=== PATIENT | male | born 1965 | race Caucasian/White ===

== ENCOUNTER 2022-08-22 08:02 | Inpatient (IN) | payer BC, MEDICAID, OTHER, SELFPAY ==
[~2022-08-22] VITALS: Ht 172.7 cm; Wt 134.0 kg
[~2022-08-22 08:02] MED LIST: CELE20TA PO; CELE40TA PO; SERO1TAB PO
[2022-08-22] MEDS: propofoL 200 MG/20 ML VIAL IV.PROC PRN ×2 (10:05→10:07)
[2022-08-22 10:07] LABS: BASO # 0.1 10^3/uL (0.0-0.2); BASO % 0.8 % (0.0-1.0); EOS # 0.2 10^3/uL (0.0-0.5); EOS % 1.7 % (0.0-3.0); HEMATOCRIT 53.5 % (42.0-52.0); HEMOGLOBIN 17.1 g/dl (13.5-17.5); LYMPH # 2.3 10^3/uL (1.5-5.0); LYMPH % 18.4 % (24.0-44.0); MEAN CORPUSCULAR HEMOGLOBIN 30.9 pg (27.0-33.0); MEAN CORPUSCULAR VOLUME 96.6 fl (80.0-96.0); MONO # 0.7 10^3/uL (0.0-0.8); MONO % 6.1 % (2.0-8.0); NEUTROPHILS # 8.8 10^3/uL (1.5-8.5); NEUTROPHILS % 72.5 % (36.0-66.0); PLATELET COUNT, AUTOMATED 304 10^3/uL (150-450); RED BLOOD COUNT 5.54 10^6/uL (4.30-6.10); WHITE BLOOD COUNT 12.2 10^3/uL (4.0-10.0)
[2022-08-22 10:39] LABS: BLOOD UREA NITROGEN 12 MG/DL (9-23); CALCIUM LEVEL 9.5 MG/DL (8.5-10.1); CARBON DIOXIDE LEVEL 28 MMOL/L (20-31); CHLORIDE LEVEL 101 MMOL/L (98-107); CK-MB VALUE MASS < 1.0 NG/ML (<3.6); CPK CREATINE PHOSPHOKINASE 74 U/L (46-171); CREATININE FOR GFR 0.76 MG/DL (0.70-1.30); GLOMERULAR FILTRATION RATE > 60.0 (>56); GLUCOSE, FASTING 244 MG/DL (60-100); MB/CK RELATIVE INDEX 1.35 (< OR =4); POTASSIUM SERUM 4.5 MMOL/L (3.5-5.1); SODIUM LEVEL 137 MMOL/L (136-145)
[2022-08-22 10:52] LABS: RSV AMPLIFICATION NEGATIVE (NEGATIVE)
[2022-08-22] MEDS: NS 1,000 ML IV SCH ×2 (11:45→21:15)
[2022-08-22] MEDS ORDERED: ACETAMINOPHEN TAB 650MG DOSE (2X325MG) PO PRN (14:45)
[2022-08-22] MEDS ORDERED: **hydrALAZINE** 10 MG TAB PO PRN (14:45)
[2022-08-22] MEDS ORDERED: MORPHINE 2 MG/ML 1ML VIAL IV PRN (14:50)
[2022-08-22] MEDS: NICOTINE 21MG/24HR 1 EA TRANSDERMAL TD SCH (15:46)
[2022-08-22] MEDS ORDERED: ACET-683 PO (16:29)
[2022-08-22] MEDS ORDERED: HOME MED LIST COMPLETE! XX SCH (16:30)
[2022-08-22] MEDS ORDERED: BUPIVACAINE/EPIN 0.5% 30 ML VIAL As Ordered ONE (17:22)
[2022-08-22] MEDS ORDERED: ROCURONIUM BROMIDE 50 MG/5 ML VIAL As Ordered ONE ×2 (17:37→18:24)
[2022-08-22] MEDS ORDERED: ceFAZolin 2 GM/D5W 50 ML IV BAG (J0690 PER 500MG) As Ordered ONE (17:51)
[2022-08-22] MEDS ORDERED: dexameTHASONE 4 MG/ML 1ML VIAL (J1100 PER 1MG) As Ordered ONE ×2 (17:58→18:48)
[2022-08-22] MEDS ORDERED: ACETAMINOPHEN 1000MG 100ML IV BAG As Ordered ONE (18:02)
[2022-08-22] MEDS ORDERED: fentaNYL 100 MCG/2 ML INJECTION As Ordered ONE (18:20)
[2022-08-22] MEDS ORDERED: MIDAZOLAM INJ 2MG/2ML VIAL (J2250 PER 1MG) As Ordered ONE (18:42)
[2022-08-22] MEDS ORDERED: propofoL 200 MG/20 ML VIAL As Ordered ONE (18:42)
[2022-08-22] MEDS ORDERED: fentaNYL 250 MCG/5 ML INJECTION As Ordered ONE (18:42)
[2022-08-22] MEDS ORDERED: LIDOCAINE 2% INJ 100 MG/5 ML SYRINGE As Ordered ONE (18:42)
[2022-08-22] MEDS ORDERED: SUGAMMADEX SODIUM 500 MG/5 ML VIAL (BRIDION) As Ordered ONE (18:48)
[2022-08-22] MEDS ORDERED: HYDROmorphone HCL 2MG/ML 1ML VIAL As Ordered ONE (18:49)
[2022-08-22] MEDS ORDERED: LABETALOL 100MG/20ML VIAL As Ordered ONE (19:32)
[2022-08-22] MEDS ORDERED: ONDANSETRON 4MG 2ML VIAL IV PRN ×2 (20:15→20:20)
[2022-08-22] MEDS ORDERED: LR 1,000 ML IV SCH (20:15)
[2022-08-22] MEDS ORDERED: oxyCODONE 5MG TAB PO PRN ×2 (20:15→20:20)
[2022-08-22] MEDS ORDERED: fentaNYL 100 MCG/2 ML INJECTION IV PRN (20:15)
[2022-08-22] MEDS ORDERED: SENNA 8.6 MG TAB (SENOKOT) PO PRN (20:20)
[2022-08-22] MEDS ORDERED: KETOROLAC 30 MG/ML 1ML VIAL IV SCH (20:20)
[2022-08-22] MEDS ORDERED: diphenhydrAMINE 50MG/ML VIAL IV PRN (20:20)
[2022-08-22 21:00] VITALS: BP 112/80
[2022-08-22] MEDS: DOCUSATE SODIUM 100MG CAPSULE PO SCH (21:00)
[2022-08-22] MEDS: KETOROLAC 30 MG/ML 1ML VIAL IV SCH (21:19)
[2022-08-22 21:30] VITALS: BP 113/77
[2022-08-22 22:00] VITALS: BP 116/74
[2022-08-22 23:00] VITALS: BP 109/71
[2022-08-23] VITALS (8 sets, daily range): BP systolic 99–141; BP diastolic 60–84
[2022-08-23] MEDS: ceFAZolin SOD 2 GM in IV 1 EA IV SCH ×2 (00:57→10:00)
[2022-08-23] MEDS: KETOROLAC 30 MG/ML 1ML VIAL IV SCH ×3 (02:48→15:46)
[2022-08-23 06:09] LABS: MEAN CORPUSCULAR HGB CONC 33.1 g/dl (32.0-36.5); MEAN CORPUSCULAR VOLUME 96.6 fl (80.0-96.0); PLATELET COUNT, AUTOMATED 273 10^3/uL (150-450); RED BLOOD COUNT 4.66 10^6/uL (4.30-6.10); WHITE BLOOD COUNT 14.8 10^3/uL (4.0-10.0)
[2022-08-23] MEDS: ASPIRIN 81MG ENTERIC TABLET PO SCH ×2 (06:18→18:02)
[2022-08-23 06:30] LABS: HEMOGLOBIN 14.9 g/dl (13.5-17.5)
[2022-08-23 06:43] LABS: ALBUMIN 3.3 G/DL (3.2-5.2); ALT/SGPT 32 U/L (7.0-40); BILIRUBIN,TOTAL 0.8 MG/DL (0.3-1.2); BLOOD UREA NITROGEN 17 MG/DL (9-23); CALCIUM LEVEL 8.6 MG/DL (8.5-10.1); CARBON DIOXIDE LEVEL 24 MMOL/L (20-31); CHLORIDE LEVEL 103 MMOL/L (98-107); CREATININE FOR GFR 0.75 MG/DL (0.70-1.30); GLOMERULAR FILTRATION RATE > 60.0 (>56); GLUCOSE, FASTING 244 MG/DL (60-100); POTASSIUM SERUM 4.3 MMOL/L (3.5-5.1); SODIUM LEVEL 137 MMOL/L (136-145)
[2022-08-23] MEDS: NS 1,000 ML IV SCH (08:28)
[2022-08-23] MEDS: DOCUSATE SODIUM 100MG CAPSULE PO SCH ×2 (10:01→21:36)
[2022-08-23] MEDS: NICOTINE 21MG/24HR 1 EA TRANSDERMAL TD SCH (10:02)
[2022-08-23] MEDS ORDERED: IBUPROFEN 600MG TAB PO PRN (21:00)
[2022-08-24] MEDS ORDERED: ASPIRIN 81MG ENTERIC TABLET PO SCH
[2022-08-24] MEDS ORDERED: ACETAMINOPHEN 325 MG TAB PO SCH ×2
[2022-08-24] MEDS: ACETAMINOPHEN TAB 650MG DOSE (2X325MG) PO PRN ×2 (00:36→11:04)
[2022-08-24 04:40] VITALS: BP 130/79
[2022-08-24 05:48] LABS: BASO # 0.1 10^3/uL (0.0-0.2); BASO % 0.9 % (0.0-1.0); EOS # 0.2 10^3/uL (0.0-0.5); EOS % 1.8 % (0.0-3.0); HEMATOCRIT 45.5 % (42.0-52.0); HEMOGLOBIN 14.6 g/dl (13.5-17.5); LYMPH % 32.5 % (24.0-44.0); MEAN CORPUSCULAR HEMOGLOBIN 31.5 pg (27.0-33.0); MEAN CORPUSCULAR HGB CONC 32.1 g/dl (32.0-36.5); MEAN CORPUSCULAR VOLUME 98.1 fl (80.0-96.0); MONO % 8.2 % (2.0-8.0); NEUTROPHILS # 6.8 10^3/uL (1.5-8.5); NEUTROPHILS % 56.2 % (36.0-66.0); PLATELET COUNT, AUTOMATED 248 10^3/uL (150-450); RED BLOOD COUNT 4.64 10^6/uL (4.30-6.10); WHITE BLOOD COUNT 12.1 10^3/uL (4.0-10.0)
[2022-08-24] MEDS: ASPIRIN 81MG ENTERIC TABLET PO SCH (06:27)
[2022-08-24 06:37] LABS: ALBUMIN 3.3 G/DL (3.2-5.2); ALT/SGPT 24 U/L (7.0-40); BLOOD UREA NITROGEN 22 MG/DL (9-23); CALCIUM LEVEL 8.4 MG/DL (8.5-10.1); CARBON DIOXIDE LEVEL 25 MMOL/L (20-31); CHLORIDE LEVEL 105 MMOL/L (98-107); CREATININE FOR GFR 0.77 MG/DL (0.70-1.30); GLOMERULAR FILTRATION RATE > 60.0 (>56); GLUCOSE, FASTING 192 MG/DL (60-100); POTASSIUM SERUM 3.9 MMOL/L (3.5-5.1); SODIUM LEVEL 139 MMOL/L (136-145); TOTAL PROTEIN 5.9 G/DL (5.7-8.2)
[2022-08-24] MEDS: NICOTINE 21MG/24HR 1 EA TRANSDERMAL TD SCH (08:55)
[2022-08-24] MEDS: DOCUSATE SODIUM 100MG CAPSULE PO SCH (08:55)
[2022-08-24] MEDS ORDERED: ACET1TAB55 PO (09:56)
[2022-08-24] MEDS ORDERED: IBUP-1022 PO (09:56)
[2022-08-24] MEDS ORDERED: ASPI81TAEC PO (09:56)
== END 2022-08-24 13:33 | disposition home or self-care (01) | DRG 313 ==
LOC: EDBD 08:02 → M ED 08:02 → M ED INP 14:42 → ENRESERV 16:38 → M MSPAV 20:55
PROVIDERS: ADMIT Family Medicine; ATTEND Family Medicine
PROC: 0SSG04Z Reposition Left Ankle Joint with Internal Fixation Device, Open Approach (ICD-10-PCS; 2022-08-22)
PROC: 0QSK04Z Reposition Left Fibula with Internal Fixation Device, Open Approach (ICD-10-PCS; principal; 2022-08-22 16:00)
DX: S82.855A Nondisplaced trimalleolar fracture of left lower leg, initial encounter for closed fracture (principal); S82.832A Other fracture of upper and lower end of left fibula, initial encounter for closed fracture; F17.210 Nicotine dependence, cigarettes, uncomplicated; Z79.82 Long term (current) use of aspirin; Z91.040 Latex allergy status; W00.0XXA Fall on same level due to ice and snow, initial encounter; Y92.9 Unspecified place or not applicable

== ENCOUNTER → 2022-09-05 | Outpatient (CLI) | payer BC ==
[~2022-09-05] MED LIST changes: +ACET-683 PO; +ACET1TAB55 PO; +ASPI81TAEC PO; +IBUP-1022 PO
[2022-09-05 14:34] LABS: BASO # 0.1 10^3/uL (0.0-0.2); BASO % 0.9 % (0.0-1.0); EOS # 0.3 10^3/uL (0.0-0.5); EOS % 2.7 % (0.0-3.0); HEMOGLOBIN 16.6 g/dl (13.5-17.5); LYMPH # 3.2 10^3/uL (1.5-5.0); MEAN CORPUSCULAR HEMOGLOBIN 31.4 pg (27.0-33.0); MEAN CORPUSCULAR HGB CONC 31.9 g/dl (32.0-36.5); MEAN CORPUSCULAR VOLUME 98.5 fl (80.0-96.0); MONO # 0.7 10^3/uL (0.0-0.8); MONO % 6.2 % (2.0-8.0); NEUTROPHILS # 7.4 10^3/uL (1.5-8.5); NEUTROPHILS % 62.6 % (36.0-66.0); PLATELET COUNT, AUTOMATED 387 10^3/uL (150-450); RED BLOOD COUNT 5.28 10^6/uL (4.30-6.10); WHITE BLOOD COUNT 11.9 10^3/uL (4.0-10.0)
[2022-09-05 14:41] LABS: HEMOGLOBIN A1c 9.2 % (4.0-6.0)
[2022-09-05 15:11] LABS: CHOLESTEROL RISK RATIO 3.93 (<5); HDL CHOLESTEROL 40.7 MG/DL (>40); LDL CHOLESTEROL 90.3 MG/DL (<100)
[2022-09-05 15:26] LABS: CREATININE, URINE 184.5 MG/DL; MAU/CREAT RATIO 35.7 MCG/MG (0.0-30.0)
[2022-09-05 15:46] LABS: HEPATITIS C VIRUS ABY INDEX 0.1 INDEX (<0.8)
== END ==
LOC: M PLALAB 11:18
PROVIDERS: ATTEND Family Medicine
DX: E11.9 Type 2 diabetes mellitus without complications (principal)

== ENCOUNTER → 2022-10-04 | Outpatient (REF) | payer BC | LOC: M SFHCPLAZ 15:54 | PROVIDERS: ATTEND Family Medicine | DX: Z53.9 Procedure and treatment not carried out, unspecified reason (principal) ==

== ENCOUNTER → 2022-10-05 | Outpatient (CLI) | payer BC | LOC: M SOG 14:54 | PROVIDERS: ATTEND Orthopaedic Surgery Adult Reconstructive Orthopaedic Surgery | DX: S82.852D Displaced trimalleolar fracture of left lower leg, subsequent encounter for closed fracture with routine healing (principal) ==

== ENCOUNTER 2022-11-30 00:42 | Emergency (ER) | payer BC ==
[~2022-11-30] VITALS: Ht 175.3 cm; Wt 119.5 kg
[2022-11-30 01:40] LABS: RSV AMPLIFICATION NEGATIVE (NEGATIVE)
[2022-11-30] MEDS ORDERED: IPRATROPIUM 0.5MG/ALBUTEROL 2.5MG INH SOL UD 3ML (DUONEB) NEB ONE (01:55)
[2022-11-30] MEDS ORDERED: MUCI600T31 PO (03:15)
[2022-11-30] MEDS ORDERED: predniSONE 20 MG TAB PO ONE (03:15)
[2022-11-30] MEDS ORDERED: PRED20TA PO (03:15)
[2022-11-30] MEDS ORDERED: guaiFENesin ER 600 MG TAB PO ONE (03:30)
[2022-11-30 03:41] VITALS: BP 114/74
[2022-11-30] MEDS ORDERED: guaiFENesin ER 600 MG TAB PO SCH (09:00)
== END 2022-11-30 03:43 | disposition home or self-care (01) ==
LOC: M ED 00:42
DX: J20.9 Acute bronchitis, unspecified (principal); E11.9 Type 2 diabetes mellitus without complications; J44.9 Chronic obstructive pulmonary disease, unspecified; F17.200 Nicotine dependence, unspecified, uncomplicated; Z79.82 Long term (current) use of aspirin
CPT/HCPCS: 71046; 87631; 94640; 99284; J7512

== ENCOUNTER → 2023-01-22 | Outpatient (CLI) | payer BC ==
[~2023-01-22] MED LIST changes: +MUCI600T31 PO; +PRED20TA PO
[2023-01-22 11:54] LABS: CREATININE, URINE 155.9 MG/DL; MAU/CREAT RATIO 7.6 MCG/MG (0.0-30.0)
[2023-01-22 12:00] LABS: HEMOGLOBIN A1c 5.8 % (4.0-6.0)
== END ==
LOC: M PLALAB 08:39
PROVIDERS: ATTEND Family Medicine
DX: E11.9 Type 2 diabetes mellitus without complications (principal)

== ENCOUNTER → 2023-02-21 | Outpatient (CLI) | payer BC | LOC: M RAD 09:27 | PROVIDERS: ATTEND Family Medicine | DX: Z12.2 Encounter for screening for malignant neoplasm of respiratory organs (principal); F17.211 Nicotine dependence, cigarettes, in remission; R91.8 Other nonspecific abnormal finding of lung field ==